=== PATIENT | female | born 1935 | race American Indian/Alaskan Native ===

== ENCOUNTER 2018-03-06 18:36 | Emergency (ER) | payer MEDICARE ==
[2018-03-06 20:16] VITALS: BP 136/71
--- NOTE | 2018-03-06 20:49 | Emergency Department Report ---
ED Fall HPI - General Chief Complaint: Fall Stated Complaint: FALL Time Seen by Provider: 03/06/18 20:32 Source: patient, EMS Mode of arrival: Stretcher - History of Present Illness Initial Comments: Patient is a 82 years old female with history of advanced dementia and arthritis. Patient brought from a intermediate for evaluation after fall. Patient denied any symptoms. She specifically denied any headache, neck pain, chest pain, abdominal pain or extremity pain. She also denied any back pain. MD Complaint: fall -: This evening Fall From: standing Fall Witnessed: yes, by living facility s Place Fall Occurred: intermediate/SNF Loss of Consciousness: none Prolonged Down Time?: no Symptoms Prior to Fall: none Context: tripped/slipped Associated Symptoms: denies - Related Data Allergies Allergy/AdvReac Type Severity Reaction Status Date / Time No Known Allergies Allergy Unverified 03/06/18 20:23 ED Review of Systems ROS: Stated complaint: FALL Other details as noted in HPI Comment: All other systems reviewed and negative Constitutional: denies: chills, fever Cardiovascular: denies: chest pain, palpitations Gastrointestinal: denies: abdominal pain, nausea, vomiting Musculoskeletal: denies: back pain ED Past Medical Hx - Past Medical History Hx Dementia: Yes - Social History Smoking Status: Never Smoker Substance Use Type: None ED Physical Exam - General Limitations: No Limitations General appearance: alert, in no apparent distress - Head Head exam: Present: atraumatic, normocephalic, normal inspection - Eye Eye exam: Present: normal appearance, PERRL - ENT ENT exam: Present: normal exam, normal orophraynx, mucous membranes moist - Neck Neck exam: Present: normal inspection, full ROM. Absent: tenderness, meningismus, lymphadenopathy, thyromegaly - Respiratory Respiratory exam: Present: normal lung sounds bilaterally. Absent: respiratory distress, chest wall tenderness - Cardiovascular Cardiovascular Exam: Present: regular rate, normal rhythm, normal heart sounds - GI/Abdominal GI/Abdominal exam: Present: soft, normal bowel sounds. Absent: distended, tenderness, guarding, rebound, rigid, organomegaly, mass, bruit, pulsatile mass - Extremities Exam Extremities exam: Present: normal inspection, full ROM, normal capillary refill - Back Exam Back exam: Present: normal inspection, full ROM. Absent: tenderness, CVA tenderness (R), CVA tenderness (L), muscle spasm, paraspinal tenderness, vertebral tenderness - Neurological Exam Neurological exam: Present: alert, CN II-XII intact, normal gait, reflexes normal - Skin Skin exam: Present: warm, intact, normal color ED Course Vital Signs 03/06/18 03/06/18 20:08 20:17 Temperature 98.6 F Respiratory 16 16 Rate Blood Pressure 136/71 [Left] O2 Sat by Pulse 97 97 Oximetry ED Medical Decision Making - Medical Decision Making Patient is alert, oriented in no acute distress. She denied any symptoms. I carefully examine the patient no evidence of injury. I will discharge patient to go back to the intermediate. Critical care attestation.: If time is entered above; I have spent that time in minutes in the direct care of this critically ill patient, excluding procedure time. ED Disposition Clinical Impression: Fall Disposition: DC/TX-70 ANOTHER TYPE [facility]THCARE Is pt being admited?: No Condition: Stable Instructions: Fall Prevention (ED) Referrals: PRIMARY CARE, [Primary Care Provider] - 3-5 Days
== END 2018-03-06 22:17 | disposition other institution (70) ==
LOC: ED 18:36
DX: F03.90 Unspecified dementia, unspecified severity, without behavioral disturbance, psychotic disturbance, mood disturbance, and anxiety (principal); M19.90 Unspecified osteoarthritis, unspecified site
CPT/HCPCS: 93005; 93010; 99283